=== PATIENT | male | born 1995 | race Two or more races ===

== ENCOUNTER 2018-01-09 19:25 | Emergency (ER) | payer OTHER ==
[2018-01-09] MEDS ORDERED: Dexamethasone TAB* 4 MG PO ONE (19:52)
--- NOTE | 2018-01-09 19:55 | ED ---
Throat Pain/Nasal Congestion - HPI Summary HPI Summary: 22-year-old male presents with sore throat for the past couple days. He admits to subjective fevers. He denies any chills. He states he's had a cough for 3 days ago. He denies any bowel pain. He states he did have endoscopy 5 days ago but did not have any pain afterwards. He denies any bleeding. He states that feels like his glands are swollen. He states his pain was swelling with still able to eat and drink. He denies any history of strep. He has no medical conditions. Denies any fatigue. - History of Current Complaint Chief Complaint: EDThroatPain Time Seen by Provider: 01/09/18 19:39 - Allergies/Home Medications Allergies/Adverse Reactions: Allergies Allergy/AdvReac Type Severity Reaction Status Date / Time No Known Allergies Allergy Verified 01/05/18 10:09 PMH/Surg Hx/FS Hx/Imm Hx Endocrine/Hematology History: Denies: Hx Anticoagulant Therapy Cardiovascular History: Denies: Hx Hypertension Infectious Disease History: No Infectious Disease History: Denies: Traveled Outside the [place] in Last 30 Days - Family History Known Family History: Negative: Diabetes - Social History Alcohol Use: None Substance Use Type: Reports: None Smoking Status (MU): Never Smoked Tobacco Review of Systems Positive: Fever Positive: Sore Throat Negative: Chest Pain Positive: Cough. Negative: Shortness Of Breath All Other Systems Reviewed And Are Negative: Yes Physical Exam Triage Information Reviewed: Yes Vital Signs On Initial Exam: Initial Vitals Temp Pulse Resp BP Pulse Ox 98.5 F 120 16 141/83 99 01/09/18 19:29 01/09/18 19:29 01/09/18 19:29 01/09/18 19:29 01/09/18 19:29 Vital Signs Reviewed: Yes Appearance: Positive: Well-Appearing Skin: Positive: Warm, Dry Head/Face: Positive: Normal Head/Face Inspection Eyes: Positive: Normal, EOMI, RADHA, Conjunctiva Clear ENT: Positive: Pharyngeal erythema, Uvula midline, Other - Soft palate symmetric. Negative: Tonsillar swelling, Tonsillar exudate Respiratory/Lung Sounds: Positive: Clear to Auscultation, Breath Sounds Present Cardiovascular: Positive: Normal, RRR Abdomen Description: Positive: Nontender, Soft Bowel Sounds: Positive: Present Musculoskeletal: Positive: Normal Neurological: Positive: Normal Psychiatric: Positive: Normal Diagnostics - Vital Signs Vital Signs Temp Pulse Resp BP Pulse Ox 01/09/18 19:29 98.5 F 120 16 141/83 99 - Laboratory Lab Results: Lab Results 01/09/18 Range/Units 19:29 Group A Strep Rapid Negative (Negative) Lab Statement: Any lab studies that have been ordered have been reviewed, and results considered in the medical decision making process. EENT Course/Dx - Course Course Of Treatment: 22-year-old male presents with sore throat for the past couple days. He admits to subjective fevers. He denies any chills. He states he's had a cough 3 days ago. He denies any bowel pain. He states he did have endoscopy 5 days ago but did not have any pain afterwards. He denies any bleeding. He states that feels like his glands are swollen. He states his pain was swelling with still able to eat and drink. He denies any history of strep. He has no medical conditions. Denies any fatigue. On exam pharynx erythematous. Uvula midline. Soft palate symmetric. strept neg. We'll treat with Decadron. Patient understands agrees with plan. - Differential Diagnoses Differential Diagnoses: Pharyngitis, Tonsilitis, URI/Bronchitis - Diagnoses Provider Diagnoses: Pharyngitis Discharge - Sign-Out/Discharge Documenting (check all that apply): Discharge - Discharge Plan Condition: Good Disposition: HOME Prescriptions: Dexamethasone TAB* [Decadron TAB*] 4 mg PO DAILY #4 tab Magic Mouth Was-MARYJANE/MAAL/LIDO* 5 ml SWISH SPIT QID #100 ml Patient Education Materials: Pharyngitis (ED) Referrals: [facility] - Obey WAGNER [Primary Care Provider] - Additional Instructions: Magic mouthwash 5ml swish and spit can use 4x a day Take steroid once a day for 4 more days days Take Tylenol or ibuprofen for pain every 6 hours Can gargle salt water Can use cough drops or products such as cloraseptic spray Return to ED if develop fever does not respond to Tylenol or ibuprofen, inability to swallow, or any new or worsening symptoms - Billing Disposition and Condition Condition: GOOD Disposition: HOME
[2018-01-09 20:17] VITALS: BP 124/46
== END 2018-01-09 20:16 | disposition home or self-care (01) ==
LOC: ED 19:25
DX: J02.9 Acute pharyngitis, unspecified (principal); R05 Cough; R50.9 Fever, unspecified
CPT/HCPCS: 87651; 99282; J8540